=== PATIENT | female | born 1965 | race Caucasian/White ===

== ENCOUNTER → 2018-05-06 | Outpatient (REF) | payer MEDICAID ==
[2018-05-06 13:28] LABS: RETIC HEMOGLOBIN EQUIVALENT 24.3 pg (24-36); RETICULOCYTE # 111.7 10^9/L (17-77); RETICULOCYTE % 2.1 % (0.5-1.5)
[2018-05-06 13:35] LABS: REASON FOR REVIEW RBC MORPHOLOGY; SLIDE REVIEW Report; SOURCE PERIPHERAL SMEAR
[2018-05-06 14:04] LABS: FERRITIN 64 NG/ML (8-252); IRON (FE) 57 UG/DL (50-170); TOTAL IRON BINDING CAPACITY 361 UG/DL (250-450)
[2018-05-08 00:06] LABS: FREE KAPPA LIGHT CHAINS SERUM 12.8 mg/L (3.3-19.4); FREE LAMBDA LIGHT CHAINS SERUM 18.6 mg/L (5.7-26.3); KAPPA/LAMBDA RATIO SERUM 0.69 (0.26-1.65)
[2018-05-11 07:19] LABS: PERCENT SATURATION 15.8 % (13.2-45.0)
[2018-05-11 15:08] LABS: ALBUMIN 3.87 GM/DL (3.29-5.55); ALBUMIN % 55.3 % (55.8-66.1); ALPHA-1-GLOBULIN % 4.7 % (2.9-4.9); ALPHA-1-GLOBULINS 0.33 GM/DL (0.17-0.41); ALPHA-2-GLOBULINS 0.75 GM/DL (0.42-0.99); ALPHA-2-GLOBULINS % 10.7 % (7.1-11.8); BETA-1-GLOBULINS 0.43 GM/DL (0.28-0.60); BETA-1-GLOBULINS % 6.1 % (4.7-7.2); BETA-2-GLOBULINS % 5.7 % (3.2-6.5); GAMMA GLOBULIN % 17.5 % (11.1-18.8); GAMMA GLOBULINS 1.23 GM/DL (0.65-1.58)
== END ==
LOC: M LAB REF 13:07
DX: D50.9 Iron deficiency anemia, unspecified (principal)

== ENCOUNTER → 2018-05-20 | Outpatient (REF) | payer MEDICAID | LOC: M LAB REF 13:35 | DX: D64.9 Anemia, unspecified (principal) | CPT/HCPCS: 84443 ==